=== PATIENT | female | born 1950 | race Caucasian/White ===

== ENCOUNTER → 2017-01-20 09:40 | Outpatient (CLI) | payer MEDICARE, BC ==
[2009-10-29 07:03] VITALS: BMI 23.7
== END ==
LOC: D.MAMMO 01-04 13:30
DX: Z12.31 Encounter for screening mammogram for malignant neoplasm of breast (principal)

== ENCOUNTER 2020-01-03 10:15 | Outpatient (CLI) | payer MEDICARE, BC ==
[2009-10-29 07:03] VITALS: BMI 23.7
== END 2020-01-03 10:16 | disposition home or self-care (01) ==
LOC: D.MAMMO 10:15
PROVIDERS: ATTEND Clinical Nurse Specialist Family Health
DX: Z12.31 Encounter for screening mammogram for malignant neoplasm of breast (principal)